=== PATIENT | male | born 1990 | race Caucasian/White ===

== ENCOUNTER 2021-02-14 09:45 | Day surgery (SDC) | payer OTHER ==
--- NOTE | 2021-02-11 10:18 | NUR ---
PT HERE FOR DRIVE THROUGH [facility] TEST, PT SWABBED WITH NO ISSUES, TEST SENT TO [facility]
[~2021-02-14] VITALS: Ht 180.3 cm; Wt 102.3 kg
--- NOTE | 2021-02-14 11:54 | NUR ---
1140 WAS GIVEN UPDATE IV PATENT.
[2021-02-14] MEDS ORDERED: DICLOFENAC SODI75 MG PO (12:48)
[2021-02-14] MEDS ORDERED: HYDROCODON-ACE1 EA10 PO (12:48)
--- NOTE | 2021-02-14 12:51 | NUR ---
02/14/21 1251 Theresa Calderón 1245- PT ARRIVES TO PACU NONAROUSABLE TO NOXIOUS STIMULI. PT NEEDING A JAW LIFT TO MAINTAIN A PATENT AIRWAY. RESP EVEN AND UNLABORED. OXYGEN SAT HIGH 90'S TO 100% ON 6L VIA MASK. 1248- PT WAKING UP ON HIS OWN. JAW LIFT STOPPED. OXYGEN MASK REMAINS IN PLACE.
--- NOTE | 2021-02-14 13:36 | NUR ---
PATIENT BACK TO ROOM FROM PACU. RECEIVED REPORT FROM [facility] [facility]NER. [place]. PATIENT REPORTS PAIN A 4/10. DENIES NAUSEA. REPORTS HIS KNEE FEEL NUMB. DRESSING IS CLEAN, DRY, AND INTACT. PROVIDED PATIENT WITH CRACKERS, JELLO, AND WATER. FRIEND AT BEDSIDE. CALL LIGHT WITHIN REACH.
--- NOTE | 2021-02-14 13:54 | NUR ---
on phone. denies pain. states comfortable.
--- NOTE | 2021-02-14 14:40 | NUR ---
AMB IN [facility]ALL[facility] VOIDS QS. WANTS TO GO HOME. DRESSED AND DCD PER WC WITH FRIEND.
--- NOTE | 2021-02-15 07:28 | OR ---
[facility] [address], [place] [address] Signed DATE OF OPERATION: 02/14/2021 SURGEON: Goldie Alexander MD PREOPERATIVE DIAGNOSIS: Medial meniscus tear, left knee. POSTOPERATIVE DIAGNOSIS: Medial meniscus tear, left knee. PROCEDURE PERFORMED: Left knee arthroscopy with partial medial meniscectomy. CUSTOMER SERVICE ASSISTANT: None. ANESTHESIA: General. BLOOD LOSS: Minimal. BRIEF HISTORY: Lauri is a 30-year-old gentleman with pain and locking in his knee. MRI was consistent for a large medial meniscus tear. Risks and benefits of operative treatment were discussed with him and he elected to proceed. DESCRIPTION OF PROCEDURE: Once consent was obtained, he was taken to the operating room. After adequate anesthesia, he was placed on operating room table. The right leg was flexed, abducted, and externally rotated on a well-padded leg lewis. Left was placed in well-padded proximal thigh leg lewis with no tourniquet. The portal sites were pre-injected using 0.25% Marcaine with epinephrine under an alcohol prep. The leg was then prepped and draped in a standard sterile fashion. The standard inferior lateral and superolateral portals were made and the scope was introduced in the knee. ARTHROSCOPIC FINDINGS: [id number] synovitis was noted throughout the medial half of the knee and anteriorly. The patella was noted to track well with no chondromalacia. There was a very mild osteophyte laterally. Lateral compartment was intact. ACL and PCL were Electronically Signed By: GOLDIE ALEXANDER MD 02/15/21 0728 PATIENT NAME: LAURI JACOME OPERATIVE REPORT DATE OF : 89 REPORT #: [id number] PHYSICIAN: GOLDIE ALEXANDER MD PCP: MARY NATH REPORT IS CONFIDENTIAL AND NOT TO BE RELEASED WITHOUT AUTHORIZATION [facility] [address] [facility] [place] [place] [address] Signed intact. Medial compartment showed just a couple to the femoral cartilage. There was an extensive meniscus tear extending from the anterior medial corner all the way around posteriorly into the posterior horn. There were several loose flaps that were unstable. They were both horizontal and radial components. DESCRIPTION OF OPERATION: Standard inferomedial portal was established after localization using a spinal needle. The straight, curved, and bent biters were then used to trim the meniscus tear back to a stable rim. The shaver was used to smooth this down and evacuate any extra tissues floating around. The final meniscectomy was probably 50% or greater. The mid posterior portion was most affected. All debris was evacuated and the scope was removed. The portals were closed with 3-0 nylon and the knee was injected with 60 mg Toradol. The portals were then dressed with Adaptic, ABD, and Tony wrap. He tolerated the procedure well. All sponge, needle, and instrument counts were correct. Goldie Alexander MD BA/MODL /[id number] Copies: ~ Electronically Signed By: GOLDIE ALEXANDER MD 02/15/21 0728 PATIENT NAME: NAALAURI OPERATIVE REPORT DATE OF : 89 REPORT #: [id number] PHYSICIAN: GOLDIE ALEXANDER MD PCP: MARY NATH REPORT IS CONFIDENTIAL AND NOT TO BE RELEASED WITHOUT AUTHORIZATION
== END 2021-02-14 14:25 | disposition home or self-care (01) ==
LOC: DS 09:45
PROVIDERS: ATTEND Specialist
PROC: 0SBD4ZZ Excision of Left Knee Joint, Percutaneous Endoscopic Approach (ICD-10-PCS; principal; 2021-02-14 13:00)
DX: S83.242A Other tear of medial meniscus, current injury, left knee, initial encounter (principal); F17.220 Nicotine dependence, chewing tobacco, uncomplicated; X58.XXXA Exposure to other specified factors, initial encounter
CPT/HCPCS: 01400; J0690; J1885; J2001; J2405; J2704; J3010; J7121